=== PATIENT | female | born 1965 | race American Indian/Alaskan Native ===

== ENCOUNTER 2020-06-01 08:40 | Emergency (ER) | payer SELFPAY ==
[2020-06-01 08:48] VITALS: BP 141/93
[2020-06-01] MEDS ORDERED: KETOROLAC 30 MG/1 ML INJ IM ONE (09:01)
[2020-06-01] MEDS ORDERED: dexAMETHasone 20 MG/5 ML VIAL IM ONE (09:01)
--- NOTE | 2020-06-01 09:08 | Emergency Department Report ---
Upper Extremity - [facility] Chief Complaint: Extremity Injury, Upper Stated Complaint: RT ARM PAIN Upper Extremity: Right Elbow Occurred When: 2 Days Mechanism: Unsure Severity: severe Symptoms: Yes Pain with Movement, Yes Limited Range of Movement Other History: 55-year-old -Serbian female with a past medical history of hypertension diabetes presents to the emergency room for right elbow pain that aches. Patient denies any injury. She states that this been going on for approximately 2 days. Patient states that she took Motrin last dose at 2 AM. Patient is followed by [facility]. 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 ED Review of Systems ROS: Stated complaint: RT ARM PAIN Other details as noted in HPI ED Past Medical Hx - Past Medical History Previous Medical History?: Yes Hx Hypertension: Yes Hx Diabetes: Yes - Surgical History Past Surgical History?: No - Social History Smoking Status: Former Smoker Substance Use Type: Alcohol, Marijuana - Medications Home Medications: Home Medications Medication Instructions Recorded Confirmed Last Taken Type Diclofenac Sodium 50 mg PO BID 10 Days #20 tablet. 06/01/20 Unknown Rx predniSONE [Deltasone] 20 mg PO QDAY 5 Days #5 tab 06/01/20 Unknown Rx Upper Extremity Exam - Exam General: Vital signs noted. No distress. Alert and acting appropriately. Head and Torso: No HEENT Abnormality, No Neck Tenderness, No Chest/Lungs Abnormality, No Abdominal Tenderness, No Back Tenderness Shoulder Exam: Yes Normal Range of Motion in Shoulder, No Shoulder Tenderness, No Clavicle Tenderness, No Shoulder Deformity, No AC Joint Tenderness Arm Exam: No Arm/Humerus Tenderness, No Arm Deformity Elbow: Yes Elbow Tenderness (right), Yes Normal Range of Motion in Elbow (but with pain) Forearm: No Forearm Tenderness, No Forearm Deformity, No Pain with Pronation, No Pain with Supination Wrist: Yes Normal ROM in Wrist, No Wrist Tenderness, No Wrist Deformity, No Snuffbox Tenderness, No Pain with Axial Thumb Compression Hand: Yes Normal ROM in Digit(s), No Hand Tenderness, No Hand Deformity, No Digit Tenderness, No Digit(s) Deformity, No Tendon Dysfunction CMS Exam: No Broken Skin, No Normal Distal Pulses, No Normal Capillary Refill, No Normal Distal Sensation ED Course Vital Signs 06/01/20 08:46 Temperature 97.6 F Pulse Rate 90 Respiratory 18 Rate Blood Pressure 141/93 O2 Sat by Pulse 95 Oximetry ED Medical Decision Making - Medical Decision Making 55-year-old -Serbian female with a past medical history of hypertension diabetes presents to the emergency room for right elbow pain that aches. Patient denies any injury. She states that this been going on for approximately 2 days. Patient states that she took Motrin last dose at 2 AM. Patient is followed by [facility]. 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 Patient was given a shot of Toradol 30 mg IM and dexamethasone 10 mg IM. She will be discharged home with prednisone 20 mg daily for the next 5 days and diclofenac's. Instructed patient that her blood sugars may increase and she needs to take the second dose of Metformin. Naye with patient to follow-up with her primary care provider. Critical care attestation.: If time is entered above; I have spent that time in minutes in the direct care of this critically ill patient, excluding procedure time. ED Disposition Clinical Impression: Tendonitis of elbow, right Disposition: DC-01 TO HOME OR SELFCARE Is pt being admited?: No Does the pt Need Aspirin: No Condition: Stable Instructions: Tennis Elbow, [id number] Additional Instructions: Take medication as prescribed. Be aware that your blood sugars may increase up to 10 days while being on prednisone for 5 days. Be sure to increase your water intake and take your Metformin twice a day as prescribed. Follow-up with your primary care provider. Prescriptions: predniSONE [Deltasone] 20 mg PO QDAY 5 Days #5 tab Diclofenac Sodium 50 mg PO BID 10 Days #20 tablet. Referrals: douglas Frias [Other] - 3-5 Days
== END 2020-06-01 10:03 | disposition home or self-care (01) ==
LOC: ED 08:40
DX: M77.11 Lateral epicondylitis, right elbow (principal); I10 Essential (primary) hypertension; F12.10 Cannabis abuse, uncomplicated; E11.9 Type 2 diabetes mellitus without complications; Z79.899 Other long term (current) drug therapy; Z87.891 Personal history of nicotine dependence
CPT/HCPCS: 96372; 99282; J1100; J1885

== ENCOUNTER 2020-09-24 15:53 | Emergency (ER) | payer SELFPAY ==
[2020-09-24 17:06] VITALS: BP 156/97
--- NOTE | 2020-09-24 17:06 | Event Note ---
ED Screening Note Date of service: 09/24/20 Time: 17:04 ED Screening Note: 55 y o female presents with lft knee pain and right ankle pain s/p fall [facility] This initial assessment/diagnostic orders/clinical plan/treatment(s) is/are subject to change based on patients health status, clinical progression and re- assessment by fellow clinical providers in the ED. Further treatment and workup at subsequent clinical providers discretion. Patient/guardian urged not to elope from the ED as their condition may be serious if not clinically assessed and managed. Initial orders include: xr knee and right ankle xr
--- NOTE | 2020-09-24 17:39 | XRay Report ---
LEFT KNEE 2 VIEWS INDICATION / CLINICAL INFORMATION: pain. COMPARISON: None available. FINDINGS: ONLY LATERAL VIEWS WERE OBTAINED. NO SIGNIFICANT SKELETAL ABNORMALITY Signer Name: Henrik Gaines MD [employer]ACIron Signed: 09/24/2020 5:35 PM Workstation Name: [id number]
--- NOTE | 2020-09-24 17:40 | XRay Report ---
RIGHT ANKLE 2 VIEWS INDICATION / CLINICAL INFORMATION: pain. COMPARISON: None available. FINDINGS: Small plantar calcaneal spur. No other significant skeletal abnormality Signer Name: Henrik Gaines MD [employer]ACIron Signed: 09/24/2020 5:35 PM Workstation Name: [id number]
--- NOTE | 2020-09-24 22:52 | Emergency Department Report ---
ED General Adult HPI - General Chief complaint: Extremity Injury, Lower Stated complaint: LT KNEE/RT ANKLE INJURY Time Seen by Provider: 09/24/20 22:20 Source: patient Mode of arrival: Ambulatory Limitations: No Limitations - History of Present Illness Initial comments: Patient is a 55-year-old -Swazi female who presents status post fall at [facility] today. Patient states she slipped and fell at [facility] striking her left knee and twisting her right lateral ankle. Currently complains of 5/10 pain that is exacerbated by weightbearing and sitting. Pain is relieved by nothing tried. Patient rates pain at 3/10 at this time improving. There are no other obvious injuries. There was no LOC patient self extricated. - Related Data Previous Rx's Medication Instructions Recorded Last Taken Type Diclofenac Sodium 50 mg PO BID 10 Days #20 tablet. 06/01/20 Unknown Rx predniSONE [Deltasone] 20 mg PO QDAY 5 Days #5 tab 06/01/20 Unknown Rx Menthol/Camphor [Cameron Austin 50 gm TP Q6H PRN #1 tube 09/24/20 Unknown Rx Ointment] Naproxen 500 mg PO BID PRN #30 tablet 09/24/20 Unknown Rx Allergies Allergy/AdvReac Type Severity Reaction Status Date / Time No Known Allergies Allergy Unverified 06/01/20 08:44 ED Review of Systems ROS: Stated complaint: LT KNEE/RT ANKLE INJURY Other details as noted in HPI Constitutional: denies: chills, fever Eyes: denies: eye pain, eye discharge, vision change ENT: denies: ear pain, throat pain Respiratory: no symptoms reported Cardiovascular: denies: chest pain, palpitations Endocrine: no symptoms reported Gastrointestinal: denies: abdominal pain, nausea, diarrhea Genitourinary: denies: urgency, dysuria, discharge Musculoskeletal: joint swelling, arthralgia, myalgia (low b). denies: back pain Skin: denies: rash, lesions Neurological: denies: headache, weakness, paresthesias Psychiatric: denies: anxiety, depression Hematological/Lymphatic: denies: easy bleeding, easy bruising ED Past Medical Hx - Past Medical History Previous Medical History?: Yes Hx Hypertension: Yes Hx Diabetes: Yes - Social History Smoking Status: Former Smoker Substance Use Type: Alcohol, Marijuana - Medications Home Medications: Home Medications Medication Instructions Recorded Confirmed Last Taken Type Diclofenac Sodium 50 mg PO BID 10 Days #20 tablet. 06/01/20 Unknown Rx predniSONE [Deltasone] 20 mg PO QDAY 5 Days #5 tab 06/01/20 Unknown Rx Menthol/Camphor [Cameron Austin 50 gm TP Q6H PRN #1 tube 09/24/20 Unknown Rx Ointment] Naproxen 500 mg PO BID PRN #30 tablet 09/24/20 Unknown Rx ED Physical Exam - General Limitations: No Limitations General appearance: alert, in no apparent distress - Head Head exam: Present: atraumatic, normocephalic, normal inspection - Expanded Head Exam Expanded Head exam: Absent: laceration, abrasion, contusion, hematoma, general tenderness, tenderness of temporal artery - Eye Eye exam: Present: normal appearance, scleral icterus, conjunctival injection, periorbital swelling - ENT ENT exam: Present: mucous membranes moist - Neck Neck exam: Present: normal inspection, full ROM. Absent: tenderness, meningismus, lymphadenopathy, thyromegaly - Expanded Neck Exam Expanded Neck exam: Absent: tenderness, midline deformity, anterior neck swelling, tracheal deviation - Respiratory Respiratory exam: Present: normal lung sounds bilaterally. Absent: respiratory distress, wheezes, rales, rhonchi, stridor, chest wall tenderness - Cardiovascular Cardiovascular Exam: Present: regular rate, normal rhythm, normal heart sounds. Absent: systolic murmur, diastolic murmur, rubs, gallop - GI/Abdominal GI/Abdominal exam: Present: soft, normal bowel sounds. Absent: distended, tenderness, guarding, bruit, hernia - External exam: Absent: normal external exam - Extremities Exam Extremities exam: Present: normal inspection - Expanded Lower Extremity Exam Left Knee exam: Present: full ROM, tenderness, abrasion, pain w/ pronation/supination, pain/laxity with varus, full knee extension. Absent: swelling, laceration, ecchymosis, deformity, crepidus, dislocation, erythema, effusion, posterior draw sign, pain/laxity with valgus Lower Leg exam: Present: normal inspection. Absent: full ROM, tenderness, swelling Ankle exam: Present: full ROM. Absent: tenderness, swelling Foot/Toe exam: Present: full ROM. Absent: tenderness, swelling Right Ankle exam: Present: full ROM, tenderness, swelling. Absent: abrasion, laceration, ecchymosis, deformity, crepidus, dislocation, erythema, anterior draw sign Foot/Toe exam: Present: full ROM. Absent: tenderness, swelling Neuro vascular tendon exam: Absent: pulse deficit, motor deficit, sensory deficit, tendon deficit Gait: Positive: observed and limited by pain - Back Exam Back exam: Present: normal inspection, full ROM. Absent: tenderness - Neurological Exam Neurological exam: Present: alert, altered, oriented X3, CN II-XII intact, normal gait, reflexes normal. Absent: motor sensory deficit - Expanded Neurological Exam Expanded Patient oriented to: Present: person, place Speech: Present: fluid speech Cranial nerves: EOM's Intact: Normal Cerebellar function: Finger to Nose: Normal, Heel to Cotto: Normal Sensory exam: Lower Extremity Light Touch: Normal, Lower Extremity Pin Prick: Normal Motor strength exam: RUE: 5, LUE: 5, RLE: 5, LLE: 5 Best Eye Response (Will): (4) open spontaneously Best Motor Response (Will): (6) obeys commands Best Verbal Response (Will): (5) oriented Lynden Total: 15 - Psychiatric Psychiatric exam: Present: normal affect, normal mood - Skin Skin exam: Present: warm, dry, intact, normal color. Absent: rash ED Course Vital Signs 09/24/20 17:04 Temperature 97.9 F Pulse Rate 94 H Respiratory 20 Rate Blood Pressure 156/97 O2 Sat by Pulse 96 Oximetry ED Medical Decision Making - Radiology Data Radiology results: report reviewed interpreted by me: Findings Reporting MD: Henrik Gaines Dictation Time: September 24, 2020 16:35 Chief Diversity Officer: Not available Press Tool Maker Date: RIGHT ANKLE 2 VIEWS INDICATION / CLINICAL INFORMATION: pain. COMPARISON: None available. FINDINGS: Small plantar calcaneal spur. No other significant skeletal abnormality Signer Name: Henrik Gaines MD FACR Signed: 09/24/2020 4:35 PM Workstation Name: [employer] Findings Reporting MD: Henrik Gaines Dictation Time: September 24, 2020 16:35 Chief Diversity Officer: Not available Press Tool Maker Date: LEFT KNEE 2 VIEWS INDICATION / CLINICAL INFORMATION: pain. COMPARISON: None available. FINDINGS: ONLY LATERAL VIEWS WERE OBTAINED. NO SIGNIFICANT SKELETAL ABNORMALITY Signer Name: Henrik Gaines MD FACR Signed: 09/24/2020 4:35 PM Workstation Name: [id number] - Medical Decision Making xrays negative for fracture no soft tissue abnormality, plan dc to with rx for NSAIDs, prn pain , rice therapy , follow up with pcp in 2-3 days. pt is a/o 3 ambulatory with steady gait, pt with no acute distress at this itme., pt is ambulatory without assist, Critical care attestation.: If time is entered above; I have spent that time in minutes in the direct care of this critically ill patient, excluding procedure time. ED Disposition Clinical Impression: Fall Qualifiers: Encounter type: initial encounter Qualified Code(s): W19.XXXA - Unspecified fall, initial encounter Strain of ankle, right Qualifiers: Encounter type: initial encounter Qualified Code(s): S96.911A - Strain of unspecified muscle and tendon at ankle and foot level, right foot, initial encounter Strain of left knee Qualifiers: Encounter type: initial encounter Qualified Code(s): S86.912A - Strain of unspecified muscle(s) and tendon(s) at lower leg level, left leg, initial encounter Disposition: DC-01 TO HOME OR SELFCARE Is pt being admited?: No Does the pt Need Aspirin: No Condition: Stable Instructions: Muscle Strain, Elastic Bandage and RICE Therapy Additional Instructions: Take medications a prescribed, use moist heat therapy as discussed, return to emergency if symptoms worsen. Prescriptions: Naproxen 500 mg PO BID PRN #30 tablet PRN Reason: PAIN Menthol/Camphor [Cameron Austin Ointment] 50 gm TP Q6H PRN #1 tube PRN Reason: PAIN Referrals: KIMBERLI ARNOLD MD [Staff Physician] - 3-5 Days Forms: Work/School Release Form(ED) Time of Disposition: 23:21
== END 2020-09-24 23:35 | disposition home or self-care (01) ==
LOC: ED 15:53
DX: S96.911A Strain of unspecified muscle and tendon at ankle and foot level, right foot, initial encounter (principal); S86.912A Strain of unspecified muscle(s) and tendon(s) at lower leg level, left leg, initial encounter; Z79.899 Other long term (current) drug therapy; W18.39XA Other fall on same level, initial encounter; Y93.89 Activity, other specified; Y92.89 Other specified places as the place of occurrence of the external cause; Y99.8 Other external cause status
CPT/HCPCS: 99283